=== PATIENT | female | born 1960 | race Caucasian/White ===

== ENCOUNTER 2022-04-09 22:28 | Emergency (ER) | payer MEDICARE, OTHER, SELFPAY ==
[2022-04-09 22:37] VITALS: BP 122/62; PULSE 80; RESP 20; TEMP 36.1; O2SAT 97; BMI 38.2
--- NOTE | 2022-04-09 22:52 | ED_ITS ---
HPI - General Adult General Time Seen by Provider: 22:52 Date Seen: 04/09/22 Chief complaint: Skin/Abscess/Foreign Body Stated complaint: RT leg swelling, red and warm Time Seen by Provider: 04/09/22 22:31 Source: patient Mode of arrival: ambulatory Limitations: no limitations History of Present Illness HPI narrative: 61-year-old female who comes in today with right leg redness and swelling. Patient has a history of peripheral vascular disease and lymphedema, her right leg started appearing more red this evening. She does not have any pain, or itching. She denies fever, chills, nausea, vomiting, or diarrhea. She has had cellulitis in the past and says this looks similar. Related Data Previous Rx's Medication Instructions Recorded cephalexin 500 mg capsule 500 mg PO TID 10 days #30 caps 04/09/22 doxycycline monohydrate 100 mg 100 mg PO BID 10 days #20 caps 04/09/22 capsule Allergies Allergy/AdvReac Type Severity Reaction Status Date / Time Penicillins Allergy Verified 04/09/22 22:36 Sulfa (Sulfonamide Allergy Verified 04/09/22 22:36 Antibiotics) Review of Systems Status of ROS: Reports: 10 or more systems reviewed and unremarkable except as noted in History and below PFSH PFSH Social History Smoking Status: Current every day smoker What tobacco products do you use: cigarettes Smoking packs per day: 1 Smoking cigarettes per day: 20.0 Years smoked: 40 Smoking pack-years: 40.00 Do you use any of these nicotine containing products: None Second hand tobacco smoke exposure: No How often do you have a drink containing alcohol: never How often do you have six or more drinks on one occasion: Never AUDIT-C Alcohol total score: 0 Non-prescribed substance use: denies use service: No Exam Narrative: Exam Narrative: General: well nourished , NAD Head: Atraumatic and normocephalic ENT: External ears and external nose are normal Eyes: Conjunctiva clear, pupils are equal reactive, external ocular motions are intact Neck: Full spontaneous range of motion of the neck Lungs: No respiratory distress Musculoskeletal: No tenderness or deformity Neurologic: No gross focal neurologic deficits Skin: Chronic venous stasis changes of the lower extremities bilaterally. On the right leg, redness extends toward the knee with some mild induration and warmth. Psych: Mood and affect are appropriate Const: Vital Signs, click to edit/add: Vital Signs - 24 hr 04/09/22 22:37 Temperature 97 F L Pulse Rate [Pulse Oximeter] 80 Respiratory Rate 20 Blood Pressure [Le ft Forearm] 122/62 Pulse Oximetry 97 Oxygen Delivery Me thod Room Air Course Course Hospital Course: Patient seen and examined, prior records reviewed. Patient with redness and warmth of the right lower leg consistent with cellulitis, left leg has chronic venous stasis changes but she says looks the same as usual. She denies any systemic signs or symptoms of infection. We discussed ultrasound for DVT, patient declines this and I think DVT is unlikely at this time. We also discussed starting an IV and given around of IV antibiotics. Patient does not want to wait for this and prefers to be given oral medications and discharged. She will be started on Keflex and doxycycline, 1st dose given in the emergency department prescription sent. Vital Signs Vital signs: Initial Vital Signs Temperature 97 F L 04/09/22 22:37 Temperature Source Temporal Artery Scan 04/09/22 22:37 Pulse Rate 80 04/09/22 22:37 Pulse Rhythm 04/09/22 22:37 Respiratory Rate 20 04/09/22 22:37 Blood Pressure 122/62 04/09/22 22:37 Blood Pressure Mean 82 04/09/22 22:37 Blood Pressure Position Supine 04/09/22 22:37 Pulse Oximetry 97 04/09/22 22:37 Oxygen Delivery Method 04/09/22 22:37 Vital Signs Temperature 97 F L 04/09/22 22:37 Pulse Rate 80 04/09/22 22:37 Respiratory Rate 20 04/09/22 22:37 Blood Pressure 122/62 04/09/22 22:37 Pulse Oximetry 97 04/09/22 22:37 Oxygen Delivery Method 04/09/22 22:37 Temperature 97 F L 04/09/22 22:37 Pulse Rate 80 04/09/22 22:37 Respiratory Rate 20 04/09/22 22:37 Blood Pressure 122/62 04/09/22 22:37 Pulse Oximetry 97 04/09/22 22:37 Oxygen Delivery Method 04/09/22 22:37 Medical Decision Making Medical Records Medical records reviewed: Yes I reviewed the patient's medical records Lab Data Lab results reviewed: Yes I reviewed the patient's lab results Discharge Plan Discharge Clinical Impression: Cellulitis, Chronic venous stasis dermatitis Patient Disposition: Home, Self-Care Condition: Stable Instructions: Peripheral Vascular Disease (ED) Activity Level: No Restrictions Discharge Diet: Regular Prescriptions: New doxycycline monohydrate 100 mg capsule 100 mg PO BID 10 Days Qty: 20 0RF cephalexin 500 mg capsule 500 mg PO TID 10 Days Qty: 30 0RF Stand Alone Forms: [employer] Info Instructions
[2022-04-09] MEDS: cephALEXin 500 MG CAPSULE PO (22:59)
[2022-04-09] MEDS: DOXYCYCLINE HYCLATE 100 MG CAPSULE PO (23:09)
== END 2022-04-09 23:24 | disposition home or self-care (01) ==
LOC: ED 23:07
PROVIDERS: Emergency Provider Family Medicine
DX: L03.115 Cellulitis of right lower limb (principal); I87.2 Venous insufficiency (chronic) (peripheral)
CPT/HCPCS: 99283; 99284; A9270

== ENCOUNTER 2022-05-03 02:20 | Emergency (ER) | payer MEDICARE, OTHER, SELFPAY ==
[2022-05-03 02:29] VITALS: BP 119/57; PULSE 92; RESP 14; TEMP 36.3; O2SAT 97; BMI 38.2
--- NOTE | 2022-05-03 02:39 | ED_ITS ---
HPI - General Adult General Chief complaint: Unspecified Complaint, Adult Stated complaint: possible cellulitis or blood clot Time Seen by Provider: 05/03/22 02:32 History of Present Illness HPI narrative: Pt is a 61 year old woman with a history of lower extremity venous insufficiency who presents with a tender swollen right lower extremity. Pt states symptoms worsened this evening and she is concerned that she may have a blood clot or cellulitis. Pt was treated approximately 3 weeks ago with doxycycline and keflex for cellulitis. No chest pain or shortness of breath. No fever or chills. No open sores or drainage. Area or redness and swelling confined to the right calf. Painful when she bears weight. No recent trauma Related Data Previous Rx's Medication Instructions Recorded cephalexin 500 mg capsule 500 mg PO TID 10 days #30 caps 04/09/22 doxycycline monohydrate 100 mg 100 mg PO BID 10 days #20 caps 04/09/22 capsule prednisone 10 mg tablet See Rx Instructions .Route 04/09/22 .COMPLEX #31 tabs Allergies Allergy/AdvReac Type Severity Reaction Status Date / Time Penicillins Allergy Verified 05/03/22 02:34 Sulfa (Sulfonamide Allergy Verified 05/03/22 02:34 Antibiotics) Review of Systems Status of ROS: Reports: 10 or more systems reviewed and unremarkable except as noted in History and below Narrative: Meds continued: ASA, Azathiaprine, Buspirone, Duloxetine, Diazepam, Ezetimibe, Incruse Ellipta, Metoprolol, Naloxegol, Nitro, Potassium, Albuterol Symbicort PFSH PFSH Medical History (Updated 05/03/22 @ 03:33 by Matthew Franco MD) CAD (coronary artery disease) Cellulitis COPD (chronic obstructive pulmonary disease) CVA (cerebral vascular accident) Lymphedema Obesity SINA (obstructive sleep apnea) Surgical History (Updated 05/03/22 @ 02:48 by Matthew Franco MD) H/O: hysterectomy History of appendectomy Hx of cholecystectomy Social History Smoking Status: Current every day smoker What tobacco products do you use: cigarettes Smoking packs per day: 1 Smoking cigarettes per day: 20.0 Years smoked: 40 Smoking pack-years: 40.00 Do you use any of these nicotine containing products: None Second hand tobacco smoke exposure: No How often do you have a drink containing alcohol: never How often do you have six or more drinks on one occasion: Never AUDIT-C Alcohol total score: 0 Non-prescribed substance use: denies use service: No Exam Narrative: Exam Narrative: EXAM GENERAL: Patient appears comfortable and well. Obese EYES: No scleral icterus. THYROID: no thyroid nodules or thyromegaly. LYMPH: No supraclavicular or cervical lymphadenopathy. SKIN: Chronic venous insufficiency noted of lower ext arms as well as swelling the right calf. Curved distal pulses. EXT: As above no other significant findings HEART: Regular rate and rhythm with no murmurs, rubs, or gallops. LUNGS: Clear to auscultation bilaterally with no crackles or wheezes. ABD: Soft, non tender, non distended. PSYCH: Good eye contact, speech is not pressured. Const: Vital Signs, click to edit/add: Vital Signs - 24 hr 05/03/22 02:29 Temperature 97.4 F L Pulse Rate [Right Pulse Oximeter] 92 Respiratory Rate 14 Blood Pressure [Le ft Upper Arm] 119/57 L Pulse Oximetry 97 Oxygen Delivery Me thod Room Air Course Course Hospital Course: I did explain my concerns that the patient has chronic needs that may not be able to stay at night. I did want to ensure that she has primary care follow-up for complex medical issues. I did further explained that I would be more than happy to investigate her current symptoms tonight. We did obtain a D-dimer CBC basic metabolic panel. Reevaluation(s) Reevaluation #1: Pt feeling well. Labs are unremarkable. D dimer borderline at 0.55. This was reviewed with pt who would like to forgo the ultrasound given the results and understands the risk of doing so. Time: 03:29 Vital Signs Vital signs: Initial Vital Signs Temperature 97.4 F L 05/03/22 02:29 Temperature Source Temporal Artery Scan 05/03/22 02:29 Pulse Rate 92 05/03/22 02:29 Pulse Rhythm 05/03/22 02:29 Respiratory Rate 14 05/03/22 02:29 Blood Pressure 119/57 L 05/03/22 02:29 Blood Pressure Mean 77 05/03/22 02:29 Blood Pressure Position Sitting 05/03/22 02:29 Pulse Oximetry 97 05/03/22 02:29 Oxygen Delivery Method 05/03/22 02:29 Vital Signs Temperature 97.4 F L 05/03/22 02:29 Pulse Rate 92 05/03/22 02:29 Respiratory Rate 14 05/03/22 02:29 Blood Pressure 119/57 L 05/03/22 02:29 Pulse Oximetry 97 05/03/22 02:29 Oxygen Delivery Method 05/03/22 02:29 Temperature 97.4 F L 05/03/22 02:29 Pulse Rate 92 05/03/22 02:29 Respiratory Rate 14 05/03/22 02:29 Blood Pressure 119/57 L 05/03/22 02:29 Pulse Oximetry 97 05/03/22 02:29 Oxygen Delivery Method 05/03/22 02:29 Medical Decision Making MDM Narrative Medical decision making narrative: Pt is a 61 year old woman with chronic venous insufficiency and recurrent cellulitis. Blood cultures collected. Labs reassuring including a low but borderline D dimer which was reviewed with pt who would like to be treated similarly to the past with antibiotics and outpt follow up. Tetanus status up to date per nursing staff. Differential Diagnosis Differential Diagnosis: Chronic venous insufficiency, cellulitis, DVT allergic rash Lab Data Labs: Lab Results 05/03/22 05/03/22 05/03/22 Range/Units 02:50 02:50 02:50 WBC 6.79 (4.50-11.00) K/uL RBC 3.77 L (4.00-5.20) m/uL Hgb 12.8 (12.0-16.0) gm/dL Hct 39.1 (33.0-51.0) % MCV 104 H (80-100) fL MCH 34 (26-34) pg MCHC 33 (32-36) gm/dL RDW Coeff of Richie 15.7 H (11.5-15.5) % Plt Count 197 (140-440) K/uL Neut % (Auto) 70.2 (42.0-72.0) % Lymph % (Auto) 22.2 (20-44) % Emanuel % (Auto) 4.7 (0.0-11.0) % Eos % (Auto) 2.5 (0.0-7.0) % Baso % (Auto) 0.3 (0.0-3.0) % Neut # (Auto) 4.76 (1.7-7.0) K/uL Lymph # (Auto) 1.51 (0.90-2.90) K/uL Emanuel # (Auto) 0.30 (0.00-0.90) K/UL Eos # (Auto) 0.17 (0.00-0.50) K/uL Baso # (Auto) 0.02 (0.00-0.30) K/uL Abs Immat Gran (auto) 0.01 (0.00-0.30) K/uL D-Dimer Quant (PE/DVT) 0.55 H (0.00-0.50) ug/ml Sodium 140 (135-149) mmol/L Potassium 3.8 (3.6-5.1) mmol/L Chloride 104 (96-114) mmol/L Carbon Dioxide 31 (20-32) mmol/L BUN 17 (7-30) mg/dL Creatinine 0.7 (0.5-1.5) mg/dL Estimated Creat Clear 56.72 Estimated GFR 98 ml/min Glucose 111 (60-115) mg/dL Calcium 8.8 (8.4-10.6) mg/dL Discharge Plan Discharge Clinical Impression: Cellulitis Condition: Stable Instructions: Cellulitis (ED) Additional Instructions: Leg elevation Warm compresses Doxycycline plus keflex Primary Care Follow up Activity Level: Activity as Tolerated Discharge Diet: Regular Prescriptions: No Action doxycycline monohydrate 100 mg capsule 100 mg PO BID 10 Days Qty: 20 0RF cephalexin 500 mg capsule 500 mg PO TID 10 Days Qty: 30 0RF prednisone 10 mg tablet See Rx Instructions .ROUTE .COMPLEX Qty: 31 0RF Rx Instructions: 40 mg daily for 3 days, then 30 mg daily for 3 days, then 20 mg daily for 3 days, then 10 mg daily for 3 days, then 5 mg daily for 2 days Follow Up/Referrals: Provider,Not a Local [Primary Care Provider] - Stand Alone Forms: [employer] Info Instructions
[2022-05-03 02:58] LABS: Basophils Absolute Auto 0.02 K/uL (0.00-0.30); Basophils Percent Auto 0.3 % (0.0-3.0); Eosinophils Absolute Auto 0.17 K/uL (0.00-0.50); Eosinophils Percent Auto 2.5 % (0.0-7.0); Hematocrit 39.1 % (33.0-51.0); Hemoglobin* 12.8 gm/dL (12.0-16.0); Immature Granulocytes Abs Auto 0.01 K/uL (0.00-0.30); Lymphocytes Absolute Auto 1.51 K/uL (0.90-2.90); Lymphocytes Percent Auto 22.2 % (20-44); Mean Corpuscular HGB Conc 33 gm/dL (32-36); Mean Corpuscular Hemoglobin 34 pg (26-34); Mean Corpuscular Volume 104 fL (80-100); Monocytes Percent Auto 4.7 % (0.0-11.0); Neutrophils Absolute Auto 4.76 K/uL (1.7-7.0); Neutrophils Percent Auto 70.2 % (42.0-72.0); Platelet Count* 197 K/uL (140-440); RDW Coefficient of Variation % 15.7 % (11.5-15.5); Red Blood Count 3.77 m/uL (4.00-5.20); White Blood Count* 6.79 K/uL (4.50-11.00)
[2022-05-03 03:12] LABS: Chloride* 104 mmol/L (96-114); Slide Review Reflex No; Sodium* 140 mmol/L (135-149)
[2022-05-03 03:13] LABS: Potassium* 3.8 mmol/L (3.6-5.1)
[2022-05-03 03:15] LABS: Creatinine* 0.7 mg/dL (0.5-1.5); Est. Creatinine Clearance* 56.72; Estimated Glomerular Filt Rate 98 ml/min
[2022-05-03 03:16] LABS: Blood Urea Nitrogen* 17 mg/dL (7-30); Calcium* 8.8 mg/dL (8.4-10.6); Carbon Dioxide* 31 mmol/L (20-32); Glucose* 111 mg/dL (60-115)
[2022-05-03 03:18] LABS: D Dimer Quantitative* 0.55 ug/ml (0.00-0.50)
--- NOTE | 2022-05-03 03:28 | ED.NURSE ---
in to discuss test results.
== END 2022-05-03 03:46 | disposition home or self-care (01) ==
PROVIDERS: Emergency Provider Internal Medicine
DX: L03.115 Cellulitis of right lower limb (principal)
CPT/HCPCS: 36415; 80048; 85025; 85379; 87040; 99283

== ENCOUNTER 2022-05-10 11:07 | Emergency (ER) | payer MEDICARE, OTHER, SELFPAY ==
[2022-05-10 11:25] VITALS: BP 101/67; PULSE 86; RESP 16; TEMP 36.6; O2SAT 95; BMI 37.9
--- NOTE | 2022-05-10 11:44 | CRLHL7_ITS ---
For Patients: As a result of the Century Cures Act, medical imaging exams and procedure reports are released immediately into your electronic medical record. You may view this report before your referring provider. If you have questions, please contact your health care provider. INDICATION: Swelling and redness. Technique : Ultrasound extremity venous bilateral performed with color Doppler and spectral waveform analysis. COMPARISON: None. FINDINGS: The bilateral common femoral, proximal deep and superficial femoral, popliteal, and greater saphenous veins were fully compressible with normal waveforms and augmentation. IMPRESSION: Negative for DVT in the bilateral extremities. Dictated by Pepito Cabrera MD @ 05/10/2022 1:00:31 PM (Electronically Signed)
--- NOTE | 2022-05-10 11:44 | ED.GENADULT ---
HPI - General Adult General Date Seen: 05/10/22 Chief complaint: Extremity Pain/Injury, Lower Stated complaint: Cellulitis/right leg Time Seen by Provider: 05/10/22 11:37 Source: patient History of Present Illness HPI narrative: Is a 61-year-old woman who presents for re-evaluation of her legs. She tells me that for the past week and a half or so she has had increased redness, particularly on the right. She always has swelling and venous stasis changes, but the legs seemed more proximally red than she is used to. She has a little bit of pain although not significantly. She was started on Keflex and doxycycline initially and then her primary doctor changed her from doxycycline to clindamycin, keeping her on the Keflex. She has been taking those and is scheduled to finish those tomorrow, and she does not feel like things are really any different. She notes that there are not any worse, but she feels like they have not changed. She says overall she feels fine, she has not had any fevers or chills, no nausea or vomiting, no weakness. She is scheduled to moved to [place] as of Monday, so she has been packing, but says she has been able to stay off her feet the past few days at least. She has not had an ultrasound, denies any history of DVT or PE. Has not had any chest pain or shortness of breath. Related Data Home Medications Medication Instructions Recorded Confirmed albuterol (refill) 90 mcg inhalation 05/10/22 mcg/actuation aerosol inhaler aspirin 81 mg tablet,delayed 81 mg PO DAILY 05/10/22 05/10/22 release (Adult Aspirin Regimen) azathioprine 50 mg tablet 150 mg PO DAILY 05/10/22 05/10/22 budesonide-formoterol HFA 160 1 inh inhalation BID 05/10/22 05/10/22 mcg-4.5 mcg/actuation aerosol inhaler (Symbicort) bupivicain/morphine pump 05/10/22 buspirone 30 mg tablet 30 mg PO DAILY 05/10/22 05/10/22 cholecalciferol (vitamin D3) 325 325 mcg PO QWEEK 05/10/22 05/10/22 mcg (13,000 unit) capsule diazepam 5 mg tablet 5 mg PO BID PRN 05/10/22 05/10/22 duloxetine 30 mg capsule,delayed 30 mg PO DAILY 05/10/22 05/10/22 release (Cymbalta) ezetimibe 10 mg-rosuvastatin 10 mg 1 tab PO DAILY 05/10/22 05/10/22 tablet metoprolol succinate 25 mg capsule 25 mg PO DAILY 05/10/22 05/10/22 sprinkle, ext. release 24 hr naloxegol 25 mg tablet (Movantik) 25 mg PO DAILY 05/10/22 05/10/22 nitroglycerin 0.4 mg sublingual 0.4 mg sublingual Q5-15M PRN 05/10/22 05/10/22 tablet potassium gluconate 2.5 mEq tablet 2.5 meq PO DAILY 05/10/22 05/10/22 prochlorperazine maleate 10 mg 10 mg PO DAILY 05/10/22 05/10/22 tablet umeclidinium 62.5 mcg/actuation 1 inh inhalation DAILY 05/10/22 05/10/22 blister powder for inhalation (Incruse Ellipta) Previous Rx's Medication Instructions Recorded cephalexin 500 mg capsule 500 mg PO TID 10 days #30 caps 04/09/22 levofloxacin 500 mg tablet 500 mg PO DAILY #7 tabs 05/10/22 Allergies Allergy/AdvReac Type Severity Reaction Status Date / Time Penicillins Allergy Verified 05/10/22 11:24 Sulfa (Sulfonamide Allergy Verified 05/10/22 11:24 Antibiotics) Review of Systems Status of ROS: Reports: 10 or more systems reviewed and unremarkable except as noted in History and below [facility] Medical History CAD (coronary artery disease) Cellulitis COPD (chronic obstructive pulmonary disease) CVA (cerebral vascular accident) Lymphedema Obesity SINA (obstructive sleep apnea) Surgical History H/O: hysterectomy History of appendectomy Hx of cholecystectomy Social History Smoking Status: Current every day smoker What tobacco products do you use: cigarettes Smoking packs per day: 1 Smoking cigarettes per day: 20.0 Years smoked: 40 Smoking pack-years: 40.00 Do you use any of these nicotine containing products: None Second hand tobacco smoke exposure: No How often do you have a drink containing alcohol: never How often do you have six or more drinks on one occasion: Never AUDIT-C Alcohol total score: 0 Non-prescribed substance use: denies use service: No Exam Narrative: Exam Narrative: Vital signs as noted above. In general, an alert, well-appearing patient. Head: Normocephalic, atraumatic. Eyes: Pupils are equal reactive. Extraocular movements are full. Conjunctivae are normal. ENT: Mucous membranes are moist. Throat is normal. Neck: Supple without lymphadenopathy. Heart: Regular rate and rhythm. No murmur or rub. Lungs: Clear bilaterally. No increased work of breathing, crackles or wheezes. Abdomen: Soft and nontender. No organomegaly. Extremities: Extensive lymphedema changes in bilateral lower extremities. She has erythema noted bilaterally, perhaps a little more extensive on the right but fairly symmetric. The boundaries of this or marked off on the right and are unchanged compared to pen markings. Minimal warmth, nontender to palpation. No fluctuance or crepitus. Pulses are difficult to palpate secondary to lymphedema changes. Capillary refill is brisk. No ulcerations or broken skin. Neurologic: Patient is alert and oriented to person and place. Speech is fluent. Face is symmetric. Moves all extremities equally. Affect: Normal. Skin: Warm and dry. Well perfused. Const: Vital Signs, click to edit/add: Vital Signs - 24 hr 05/10/22 11:25 05/10/22 12:56 Temperature 97.8 F Pulse Rate [Pulse Oximeter] 86 73 Respiratory Rate 16 18 Blood Pressure [Le ft Forearm] 115/55 L Blood Pressure [Ri ght Forearm] 101/67 Pulse Oximetry 95 94 Oxygen Delivery Me thod Room Air Room Air Documenting provider has reviewed patient's vital signs: yes Course Course Hospital Course: Possibilities for this include that she has a cellulitis which is not responding to her oral antibiotics, that her findings are simply attributable to lymphedema and do not represent infection, or possibly that this is DVT and not infection. I do think an ultrasound is final a possibility out. Discussed with her that I think is reasonable to do some labs and see how those look. Labs show normal white blood cell count 5.7. Her hemoglobin is normal although she is macrocytic. Basic metabolic panel is entirely within normal limits. CRP is essentially normal at 1.8. BNP is 191. TSH is 1.3. Her bilateral lower extremity Doppler is negative. I have discussed all this with her. I have given her the option of either finishing her antibiotics and observing to see how she does with close primary care follow-up, verses trying a different antibiotic. She just does not comfortable with observation at this time as she remains very concerned that this represents cellulitis, therefore I am going to try her on Levaquin. I have reviewed with her that if there is no improvement after this, I think we can safely say that this simply is not cellulitis and is really related to her lymphedema. I would like her to follow up with her primary care doctor within the next week for recheck, and at that time they can discuss any further management strategies for her lymphedema. Certainly if she worsens, has new symptoms such as fever, vomiting etcetera she should be seen again in the emergency department. Vital Signs Vital signs: Initial Vital Signs Temperature 97.8 F 05/10/22 11:25 Temperature Source Temporal Artery Scan 05/10/22 11:25 Pulse Rate 86 05/10/22 11:25 Pulse Rhythm 05/10/22 11:25 Pulse Strength 3+ Normal 05/10/22 11:25 Respiratory Rate 16 05/10/22 11:25 Blood Pressure 101/67 05/10/22 11:25 Blood Pressure Mean 78 05/10/22 11:25 Blood Pressure Position Sitting 05/10/22 11:25 Pulse Oximetry 95 05/10/22 11:25 Oxygen Delivery Method 05/10/22 11:25 Vital Signs Temperature 97.8 F 05/10/22 11:25 Pulse Rate 86 05/10/22 11:25 Respiratory Rate 16 05/10/22 11:25 Blood Pressure 101/67 05/10/22 11:25 Pulse Oximetry 95 05/10/22 11:25 Oxygen Delivery Method 05/10/22 11:25 Temperature 97.8 F 05/10/22 11:25 Pulse Rate 73 05/10/22 12:56 Respiratory Rate 18 05/10/22 12:56 Blood Pressure 115/55 L 05/10/22 12:56 Pulse Oximetry 94 05/10/22 12:56 Oxygen Delivery Method 05/10/22 12:56 Medical Decision Making Lab Data Labs: Lab Results 05/10/22 05/10/22 05/10/22 Range/Units 12:10 12:10 12:10 WBC 5.72 (4.50-11.00) K/uL RBC 3.66 L (4.00-5.20) m/uL Hgb 12.7 (12.0-16.0) gm/dL Hct 37.4 (33.0-51.0) % MCV 102 H (80-100) fL MCH 35 H (26-34) pg MCHC 34 (32-36) gm/dL RDW Coeff of Richie 15.9 H (11.5-15.5) % Plt Count 227 (140-440) K/uL Neut % (Auto) 71.7 (42.0-72.0) % Lymph % (Auto) 19.2 L (20-44) % [place] % (Auto) 6.3 (0.0-11.0) % Eos % (Auto) 2.3 (0.0-7.0) % Baso % (Auto) 0.3 (0.0-3.0) % Neut # (Auto) 4.10 (1.7-7.0) K/uL Lymph # (Auto) 1.10 (0.90-2.90) K/uL [facility] # (Auto) 0.40 (0.00-0.90) K/UL Eos # (Auto) 0.13 (0.00-0.50) K/uL Baso # (Auto) 0.02 (0.00-0.30) K/uL Abs Immat Gran (auto) 0.01 (0.00-0.30) K/uL Sodium 138 (135-149) mmol/L Potassium 4.0 (3.6-5.1) mmol/L Chloride 103 (96-114) mmol/L Carbon Dioxide 31 (20-32) mmol/L BUN 14 (7-30) mg/dL Creatinine 0.8 (0.5-1.5) mg/dL Estimated Creat Clear 56.72 Estimated GFR 83 ml/min Glucose 107 (60-115) mg/dL Calcium 8.8 (8.4-10.6) mg/dL C-Reactive Protein 1.8 H (0.5-1.0) mg/dL NT-Pro-B Natriuret Pep 191 H (0-125) PG/mL TSH 1.300 (0.270-4.200) uIU/mL Discharge Plan Discharge Clinical Impression: Cellulitis Patient Disposition: Home, Self-Care Condition: Stable Instructions: Cellulitis (ED) Additional Instructions: We will try Levaquin as an antibiotic. As discussed, your symptoms may be more related to venous stasis changes rather than cellulitis, and if symptoms do not change, I would recommend that you follow-up with your primary doctor to discuss further. Certainly, if things acutely worsen, if you have significant worsening redness, severe pain, fever or other changes, you should be seen again right away in the ER. Good luck with your move. Prescriptions: New levofloxacin 500 mg tablet 500 mg PO DAILY Qty: 7 0RF No Action cephalexin 500 mg capsule 500 mg PO TID 10 Days Qty: 30 0RF aspirin [Adult Aspirin Regimen] 81 mg tablet,delayed release (DR/EC) 81 mg PO DAILY azathioprine 50 mg tablet 150 mg PO DAILY bupivicain/morphine pump duloxetine [Cymbalta] 30 mg capsule,delayed release(DR/EC) 30 mg PO DAILY buspirone 30 mg tablet 30 mg PO DAILY diazepam 5 mg tablet 5 mg PO BID PRN ezetimibe-rosuvastatin 10-10 mg tablet 1 tab PO DAILY Incruse Ellipta 62.5 mcg/actuation blister with device 1 inh inhalation DAILY metoprolol succinate 25 mg capsule,sprinkle,ER 24hr 25 mg PO DAILY potassium gluconate 2.5 mEq tablet 2.5 meq PO DAILY Movantik 25 mg tablet 25 mg PO DAILY Rx Instructions: must be taken on empty stomach; no food 1 hr after or 2-3 hrs before dose nitroglycerin 0.4 mg tablet, sublingual 0.4 mg sublingual Q5-15M PRN Rx Instructions: do not exceed 3 doses per episode albuterol (refill) 90 mcg/actuation aerosol inhalation prochlorperazine maleate 10 mg tablet 10 mg PO DAILY budesonide-formoterol [Symbicort] 160-4.5 mcg/actuation HFA aerosol inhaler 1 inh inhalation BID cholecalciferol (vitamin D3) 325 mcg (13,000 unit) capsule 325 mcg PO QWEEK Follow Up/Referrals: Provider,Not a Local [Referring] - Stand Alone Forms: [employer] Info Instructions
[2022-05-10 12:25] LABS: Basophils Absolute Auto 0.02 K/uL (0.00-0.30); Basophils Percent Auto 0.3 % (0.0-3.0); Eosinophils Absolute Auto 0.13 K/uL (0.00-0.50); Eosinophils Percent Auto 2.3 % (0.0-7.0); Hematocrit 37.4 % (33.0-51.0); Hemoglobin* 12.7 gm/dL (12.0-16.0); Immature Granulocytes Abs Auto 0.01 K/uL (0.00-0.30); Lymphocytes Percent Auto 19.2 % (20-44); Mean Corpuscular HGB Conc 34 gm/dL (32-36); Mean Corpuscular Hemoglobin 35 pg (26-34); Mean Corpuscular Volume 102 fL (80-100); Monocytes Percent Auto 6.3 % (0.0-11.0); Neutrophils Percent Auto 71.7 % (42.0-72.0); Platelet Count* 227 K/uL (140-440); RDW Coefficient of Variation % 15.9 % (11.5-15.5); Red Blood Count 3.66 m/uL (4.00-5.20); White Blood Count* 5.72 K/uL (4.50-11.00)
[2022-05-10 12:42] LABS: Chloride* 103 mmol/L (96-114); Sodium* 138 mmol/L (135-149)
[2022-05-10 12:44] LABS: Creatinine* 0.8 mg/dL (0.5-1.5); Est. Creatinine Clearance* 56.72; Estimated Glomerular Filt Rate 83 ml/min
[2022-05-10 12:45] LABS: Blood Urea Nitrogen* 14 mg/dL (7-30); Carbon Dioxide* 31 mmol/L (20-32); Glucose* 107 mg/dL (60-115)
[2022-05-10 12:46] LABS: Calcium* 8.8 mg/dL (8.4-10.6); Slide Review Reflex No
[2022-05-10 12:48] LABS: C Reactive Protein* 1.8 mg/dL (0.5-1.0)
[2022-05-10 12:54] LABS: NT Pro B Type NatriureticPept* 191 PG/mL (0-125)
[2022-05-10 12:56] VITALS: BP 115/55; PULSE 73; RESP 18; O2SAT 94
== END 2022-05-10 14:50 | disposition home or self-care (01) ==
PROVIDERS: Emergency Provider Emergency Medicine; PCP Family Medicine
DX: L03.116 Cellulitis of left lower limb (principal); L03.115 Cellulitis of right lower limb
CPT/HCPCS: 36415; 80048; 83880; 84443; 85025; 86140; 93970; 99283; 99284